=== PATIENT | female | born 1995 | race Two or more races ===

== ENCOUNTER 2016-08-06 21:49 | Emergency (ER) | payer OTHER ==
[2016-08-06 22:12] VITALS: TEMP 97.9
--- NOTE | 2016-08-06 22:17 | EDPHY ---
H & P Stated Complaint: Panic Attack Time Seen by Provider: 08/06/16 22:01 HPI/ROS: HPI The patient presents with shortness of breath and tingling in her arms and mouth which began about 30 minutes prior to arrival and now has resolved. She had just finished finals, was driving in a car with her friends to go visit some other friends in [place] when she had acute onset of her symptoms. She 1st noticed that she was breathing fast, and felt that she could not control her breathing. She felt anxious. She then pulled over the car because her hands felt as if they were asleep. Then she noticed that her hands were difficult to move. Her symptoms improved throughout the next few minutes. According to her friends, who are at her bedside, they noticed that she was breathing very rapidly. She is on some sort of medication for anxiety, though cannot remember the name, she stopped taking it over the last 1 week for her final exams because it makes her feel somewhat foggy.. REVIEW OF SYSTEMS Constitutional: No fever, no chills. Eyes: No discharge. ENT: No sore throat. Cardiovascular: No chest pain, no palpitations. Respiratory: No cough, positive for shortness of breath. Gastrointestinal: No abdominal pain, no vomiting. Genitourinary: No hematuria. Musculoskeletal: No back pain. Skin: No rashes. Neurological: No headache. 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[employer], from [facility] originally PHYSICAL General Appearance: Alert, no distress Eyes: Pupils equal and round no pallor or injection ENT, Mouth: Mucous membranes moist Respiratory: There are no retractions, lungs are clear to auscultation Cardiovascular: Regular rate and rhythm Gastrointestinal: Abdomen is soft and non-tender, no masses, bowel sounds normal Neurological: A&O, cranial nerves 2-12 intact, 5/5 strength in upper and lower extremities which is symmetric, sensation is intact to light touch Skin: Warm and dry, no rashes Musculoskeletal: Neck is supple non tender Extremities: symmetrical, full range of motion Psychiatric: Patient is oriented X 3, there is no agitation Source: Patient Exam Limitations: No limitations - Personal History LMP (Females 10-55): 1-7 Days Ago Current Tetanus Diphtheria and Acellular Pertussis (TDAP): No - Medical/Surgical History Hx Asthma: No Hx Chronic Respiratory Disease: No Hx Diabetes: No Hx Cardiac Disease: No Hx Renal Disease: No Hx Cirrhosis: No Hx Alcoholism: No Hx HIV/AIDS: No Hx Splenectomy or Spleen Trauma: No Other PMH: Anxiety - Social History Smoking Status: Never smoked Constitutional: Initial Vital Signs Temperature (C) 36.6 C 08/06/16 22:06 Heart Rate 108 H 08/06/16 22:06 Respiratory Rate 12 08/06/16 22:06 Blood Pressure 125/94 H 08/06/16 22:06 O2 Sat (%) 100 08/06/16 22:06 O2 Delivery Mode Room Air Allergies/Adverse Reactions: No Known Allergies Allergy (Unverified 08/06/16 22:05) Medical Decision Making Differential Diagnosis: 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 Differential diagnosis includes anxiety attack, hyperventilation, much less likely TIA given bilateral symptoms with normal mental status. In the emergency room, patient had no recurrence of her symptoms. She felt well. I feel she likely suffered from anxiety attack, possibly precipitated by final examinations and not taking her antianxiety medication. I have encouraged her to take the medication. She will go home in the care of her friends. Departure - Departure Disposition: Home, Routine, Self-Care Clinical Impression: Anxiety attack Condition: Good Instructions: Anxiety (ED), Anxiolysis in Adults (ED) Additional Instructions: Please return to the emergency room if your worse in any way. Please continue to take her medication for anxiety. If you notice these symptoms coming on again, you can breathing into a paper bag to see if this helps. Referrals: REJI Dhillon,. [Clinic] - As per Instructions
[2016-08-06 22:35] VITALS: BP 120/90; PULSE 88; RESP 16; O2SAT 96
== END 2016-08-06 22:30 | disposition home or self-care (01) ==
DX: F41.9 Anxiety disorder, unspecified (principal)